=== PATIENT | male | born 1995 | race Caucasian/White ===

== ENCOUNTER → 2020-01-08 10:51 | Outpatient (CLI) | payer OTHER, SELFPAY ==
[2020-01-09 15:09] LABS: COVID19 Sendout NOT DETECTED
== END ==
PROVIDERS: Visit Provider Physician Assistant
DX: Z11.59 Encounter for screening for other viral diseases (principal); Z01.818 Encounter for other preprocedural examination
CPT/HCPCS: 87635

== ENCOUNTER 2020-04-06 09:02 | Emergency (ER) | payer SELFPAY ==
[2020-04-06 09:11] VITALS: BP 136/84; PULSE 74; RESP 18; TEMP 36.9; O2SAT 100; BMI 35.6
--- NOTE | 2020-04-06 09:12 | ED.HA ---
HPI - Headache General Chief Complaint: Headache Stated Complaint: 4-5 DAYS OF CLUSTER MIGRAINES Time Seen by Provider: 04/06/20 09:12 Source: patient Mode of arrival: Ambulatory Limitations: no limitations History of Present Illness HPI Narrative: Patient is a 25-year-old male who presents with headaches is ongoing for the last 4-5 days. He does not previously have headaches. He says he has a headache all over is head is quite severe and intense he has black spots in his vision he cries and lb on things due to the pain. The headaches last for about 45 minutes and then they go away. They typically happen in the morning but he said last night he had 1 is well he just waited for to go away before he fell sleep. He smokes marijuana but denies any new strain his, he has been cutting back on his alcohol use he has tried increasing his water intake nothing seems to help he denies any new environmental factors. Complaint: headache Onset (ago): day(s) (5) Onset description: sudden Location: diffuse Severity: severe Relieving factors: nothing Exacerbating factors: none Context: occurred at rest Associated symptoms: none Related Data Allergies Allergy/AdvReac Type Severity Reaction Status Date / Time clavulanic acid Allergy Mild UPSET Unverified 11/30/17 13:02 [CLAVULANIC ACID] STOMACH Review of Systems Review of Systems Narrative: GENERAL: Denies chills, fatigue, malaise, fever, sweats, travel HEENT: Denies sinus pain, ear pain, sore throat, difficulty swallowing, neck pain RESPIRATORY: Denies dyspnea, cough, wheezing, hemoptysis, sputum. CARDIOVASCULAR: Denies chest pain, palpitations, orthopnea, edema GASTROINTESTINAL: Denies nausea, vomiting, abdominal pain, diarrhea, constipation, melena. : Denies dysuria, frequency, incontinence, hematuria, urinary retention, flank pain. MUSCULOSKELETAL: Denies weakness, joint pain, or bony pain SKIN: No rash, no erythema, no pruritus NEUROLOGIC: See HPI PSYCHIATRIC: No concerning psychosocial issues. 12 point review of systems is negative except for those stated above and HPI Patient History Medical History Patient denies medical problems (Acute) Social History Smoking Status: Current every day smoker Substance Use Type: marijuana Exam Initial Vital Signs Initial Vital Signs: Vital Signs Temperature 98.4 F 04/06/20 09:11 Pulse Rate 74 04/06/20 09:11 Respiratory Rate 18 04/06/20 09:11 Blood Pressure 136/84 04/06/20 09:11 Pulse Oximetry 100 04/06/20 09:11 GENERAL: Well-appearing, well-nourished and in no acute distress. HEENT: Head atraumatic,EOMI, pupils reactive, face symmetric, moist mucous membranes CARDIOVASCULAR: Regular rate and rhythm without murmurs, rubs or gallops. RESPIRATORY: Breath sounds equal bilaterally, no wheezes rales or rhonchi. ABDOMEN: Soft, nontender. Normoactive bowel sounds all 4 quadrants. No guarding or rebound. EXTREMITIES: Normal range of motion, no clubbing or edema. Neurovascularly intact NEUROLOGICAL: Alert and oriented x4.Normal gait and speech. Cranial nerves II through XII grossly intact. Good [id number], good [id number], strength equal bilaterally, no dysarthria or aphasia, sensation in tact to soft touch bilaterally, no visual changes, no facial droop SKIN: Warm, dry, no laceration, no petechiae, no rashes or lesions. Scores NIH Stroke Scale Level of Conciousness: Alert, keenly responsive Ask month/age: Answers both questions correctly. Open/close eyes, close hand: Performs both tasks correctly Best gaze horizontal: Normal Visual espinoza: No visual loss Facial palsy: Normal symetrical movement Left arm drift: No drift for full 10 sec Right arm drift: No drift for full 10 sec Left leg drift: No drift for full 10 sec Right leg drift: No drift for full 10 sec Limb ataxia: Absent Sensory on face/arms/legs: Normal, no sensory loss Best language: No aphasia, normal Dysarthria: Normal Extinction or inattention: No abnormality Total NIH Stroke scale score: 0 Course Orders Ordered: ED Orders 04/06/20 09:18 Basic Metabolic Panel Stat Complete Blood Count AUTO DIFF Stat 04/06/20 09:19 CT head/brain wo con Stat Discontinued Medications Sodium Chloride (Normal Saline 0.9%) 1,000 mls @ 1,000 mls/hr IV BOLUS ONE Stop: 04/06/20 10:18 Last Infusion: 08/16/20 10:30 Dose: 0 mls/hr Documented by: Admin: 04/06/20 09:24 Dose: 1,000 mls/hr Documented by: MILLICENT Ketorolac Tromethamine (Toradol) 30 mg IV NOW ONE Stop: 04/06/20 09:20 Last Admin: 04/06/20 09:24 Dose: 30 mg Documented by: MILLICENT Vital Signs Vital signs: Vital Signs - 8 hr 04/06/20 09:11 04/06/20 10:31 Temperature 98.4 F Pulse Rate 74 72 Respiratory Rate 18 14 Blood Pressure 136/84 131/66 Pulse Oximetry 100 99 MDM - Headache Lab Data Attestation: I reviewed the patient's lab results. Result diagrams: 04/06/20 09:18 04/06/20 09:18 Labs: Lab Results 04/06/20 04/06/20 Range/Units 09:18 09:18 WBC 9.9 (4.5-11.0) X10^3/uL RBC 5.25 (4.5-5.9) X10^6/uL Hgb 15.8 (13.5-17.5) g/dL Hct 45.8 (41-53) % MCV 87.3 (80-100) fL MCH 30.0 (26-34) PG MCHC 34.4 (30-36) % RDW 13.6 (11.6-14.8) % Plt Count 276 (150-400) X10^3/uL Neut % (Auto) 72.4 (50-75) % Lymph % (Auto) 15.5 L (25-40) % [place] % (Auto) 8.8 (3-14) % Eos % (Auto) 2.9 (2-4) % Baso % (Auto) 0.4 (0-2) % Neut # (Auto) 7200 H (9503-5713) /uL Lymph # (Auto) 1500 (4697-0392) /uL [place] # (Auto) 900 (0-900) /uL Eos # (Auto) 300 (0-450) /uL Baso # (Auto) 0 (0-100) /uL Sodium 137 (137-145) mmol/L Potassium 4.4 (3.4-5.1) mmol/L Chloride 105 (98-107) mmol/L Carbon Dioxide 24 (22-32) mmol/L BUN 16 (9-20) mg/dL Creatinine 0.81 (0.66-1.25) mg/dL Estimated GFR > 60.0 (>60) mL/min BUN/Creatinine Ratio 19.8 (6-22) Glucose 92 (70-100) mg/dL Calcium 9.3 (8.4-10.2) mg/dL Imaging Data CT scan - head: Radiologist's Impression: PROCEDURE: CT HEAD/BRAIN WO CON INDICATIONS: new onset headache TECHNIQUE: Noncontrast 4.5 mm thick angled axial sections acquired from the foramen magnum to the vertex, with coronal and sagittal reformats. For radiation dose reduction, the following was used: automated exposure control, adjustment of mA and/or kV according to patient size. COMPARISON: None. FINDINGS: Image quality: Excellent. CSF spaces: Basal cisterns are patent. No extra-axial fluid collections. Ventricles are normal in size and shape. Brain: No midline shift. No intracranial masses or hemorrhage. Rubio-white matter interface is normal. Skull and face: Calvarium and visualized facial bones are intact, without suspicious lesions. Sinuses: There is a mucous retention cyst seen within the left maxillary sinus. Visualized sinuses and mastoids are otherwise clear. IMPRESSION: Unremarkable intracranial study, without an imaging explanation found for the patient's presenting history of headache. No acute intracranial hemorrhage is seen. Dictated by: Yoseph Guthrie M.D. on 04/06/2020 at 8:43 MDM Narrative Medical decision making narrative: PATIENT OVERALL FEELING MUCH BETTER. He cannot think of any change in his diet or activities that may be triggering his headache. At this time Toradol helped his headache significantly and overall feels better. Discharge Plan Departure Patient Disposition: Home Clinical Impression: Headache Qualifiers: Headache type: unspecified Headache chronicity pattern: acute headache Intractability: not intractable Qualified Code(s): R51 - Headache Discharge Date/Time: 04/06/20 10:33 Instructions: DI for Headache Activity Restrictions/Additional Instructions: *You have been diagnosed with headache *What to do: At this time CT scan and blood work are overall reassuring. Recommend that you increase her fluid intake. You may require referral to headache specialist and even possibly an MRI if your headaches continue *Continue to take medications as directed Ibuprofen 800 mg every 8 hours if needed for pain *Follow up with your primary care provider in 2-3 days *Return to ER if you should have worsening headache no relief with ibuprofen persistent vomiting, weakness, fever or any new, worsening or concerning symptoms Referrals: [facility] [Outside]
--- NOTE | 2020-04-06 09:19 | DI.CT.S_ITS ---
PROCEDURE: CT HEAD/BRAIN WO CON INDICATIONS: new onset headache TECHNIQUE: Noncontrast 4.5 mm thick angled axial sections acquired from the foramen magnum to the vertex, with coronal and sagittal reformats. For radiation dose reduction, the following was used: automated exposure control, adjustment of mA and/or kV according to patient size. COMPARISON: None. FINDINGS: Image quality: Excellent. CSF spaces: Basal cisterns are patent. No extra-axial fluid collections. Ventricles are normal in size and shape. Brain: No midline shift. No intracranial masses or hemorrhage. Rubio-white matter interface is normal. Skull and face: Calvarium and visualized facial bones are intact, without suspicious lesions. Sinuses: There is a mucous retention cyst seen within the left maxillary sinus. Visualized sinuses and mastoids are otherwise clear. IMPRESSION: Unremarkable intracranial study, without an imaging explanation found for the patient's presenting history of headache. No acute intracranial hemorrhage is seen. Dictated by: Yoseph Guthrie M.D. on 04/06/2020 at 8:43 Approved by: Yoseph Guthrie M.D. on 04/06/2020 at 8:44
[2020-04-06] MEDS: KETOROLAC 60 MG/2 ML VIAL 30 MG IV (09:24)
[2020-04-06] MEDS: SODIUM CHLORIDE 0.9% 1,000 ML 1000 ML IV (09:24)
[2020-04-06 09:26] LABS: Add Manual Diff / Slide Review NO; Basophils Absolute Auto 0 /uL (0-100); Basophils Percent Auto 0.4 % (0-2); Eosinophils Absolute Auto 300 /uL (0-450); Eosinophils Percent Auto 2.9 % (2-4); Hematocrit 45.8 % (41-53); Hemoglobin 15.8 g/dL (13.5-17.5); Lymphocytes Absolute Auto 1500 /uL (1100-4500); Lymphocytes Percent Auto 15.5 % (25-40); Mean Corpuscular HGB Conc 34.4 % (30-36); Mean Corpuscular Volume 87.3 fL (80-100); Monocytes Absolute Auto 900 /uL (0-900); Monocytes Percent Auto 8.8 % (3-14); Neutrophils Absolute Auto 7200 /uL (1500-7000); Neutrophils Percent Auto 72.4 % (50-75); Platelet Count 276 X10^3/uL (150-400); Red Blood Cell Count 5.25 X10^6/uL (4.5-5.9); Red Cell Distribution Width 13.6 % (11.6-14.8); White Blood Cell Count 9.9 X10^3/uL (4.5-11.0)
[2020-04-06 09:40] LABS: BUN Creatinine Ratio 19.8 (6-22); Blood Urea Nitrogen 16 mg/dL (9-20); Calcium 9.3 mg/dL (8.4-10.2); Carbon Dioxide 24 mmol/L (22-32); Chloride 105 mmol/L (98-107); Estimated Glomerular Filt Rate > 60.0 mL/min (>60); Glucose 92 mg/dL (70-100); HEMOLYSIS < 15 (0-50); Potassium 4.4 mmol/L (3.4-5.1); Sodium 137 mmol/L (137-145)
[2020-04-06 10:31] VITALS: BP 131/66; PULSE 72; RESP 14; O2SAT 99
== END 2020-04-06 10:33 | disposition home or self-care (01) ==
PROVIDERS: Emergency Provider Emergency Medicine
DX: R51 Headache (principal)
CPT/HCPCS: 36415; 70450; 80048; 85025; 96361; 96374; 99284; J1885

== ENCOUNTER 2021-03-30 11:34 | Emergency (ER) | payer OTHER, MEDICAID, SELFPAY ==
[2021-03-30 11:54] VITALS: BP 126/69; PULSE 80; RESP 16; TEMP 36.7; O2SAT 99; BMI 33.9
== END 2021-03-30 15:11 | disposition left against medical advice (07) ==
PROVIDERS: Emergency Provider Nurse Practitioner Family
CPT/HCPCS: 99281

== ENCOUNTER 2021-05-25 12:00 | Emergency (ER) | payer OTHER, MEDICAID, SELFPAY ==
[2021-05-25 12:14] VITALS: BP 182/78; PULSE 82; RESP 14; TEMP 36.2; O2SAT 98; BMI 33.6
[2021-05-25] MEDS: ONDANSETRON 4 MG/2 ML INJ IV (12:39)
[2021-05-25] MEDS: KETOROLAC 30 MG/ML VIAL IM (12:39)
[2021-05-25] MEDS: SODIUM CHLORIDE 0.9% 1,000 ML 1000 ML IV (12:40)
[2021-05-25 12:43] LABS: Add Manual Diff / Slide Review NO; Basophils Absolute Auto 100 /uL (0-100); Basophils Percent Auto 0.5 % (0-2); Eosinophils Absolute Auto 400 /uL (0-450); Eosinophils Percent Auto 2.9 % (2-4); Hemoglobin 15.1 g/dL (13.5-17.5); Lymphocytes Absolute Auto 2000 /uL (1100-4500); Lymphocytes Percent Auto 13.8 % (25-40); Mean Corpuscular HGB Conc 32.9 % (30-36); Mean Corpuscular Hemoglobin 29.5 PG (26-34); Mean Corpuscular Volume 89.8 fL (80-100); Monocytes Absolute Auto 1000 /uL (0-900); Monocytes Percent Auto 6.9 % (3-14); Neutrophils Absolute Auto 10900 /uL (1500-7000); Neutrophils Percent Auto 75.9 % (50-75); Platelet Count 305 X10^3/uL (150-400); Red Blood Cell Count 5.12 X10^6/uL (4.5-5.9); Red Cell Distribution Width 13.6 % (11.6-14.8); White Blood Cell Count 14.3 X10^3/uL (4.5-11.0)
[2021-05-25 12:59] LABS: Alanine Aminotransferase 19 IU/L (<50); Albumin 4.2 g/dL (3.5-5.0); Albumin Globulin Ratio 1.3 (1.0-2.8); Alkaline Phosphatase 84 U/L (38-126); Aspartate Aminotransferase 34 IU/L (17-59); Bilirubin Total 0.5 mg/dL (0.2-1.3); Blood Urea Nitrogen 12 mg/dL (9-20); Calcium 8.9 mg/dL (8.4-10.2); Carbon Dioxide 27 mmol/L (22-32); Chloride 105 mmol/L (98-107); Estimated Glomerular Filt Rate > 60.0 mL/min (>60); Globulin 3.2 g/dL (1.7-4.1); Glucose 93 mg/dL (70-100); Lipase 23 U/L (23-300); Potassium 4.6 mmol/L (3.4-5.1); Sodium 138 mmol/L (137-145); Total Protein 7.4 g/dL (6.3-8.2)
[2021-05-25 13:01] LABS: HEMOLYSIS 78 (0-50)
--- NOTE | 2021-05-25 13:10 | ED_ITS ---
HPI - Abdominal Pain General Chief Complaint: Abdominal Pain Stated Complaint: Sharp pains lower rt abd Time Seen by Provider: 05/25/21 12:30 Source: patient Mode of arrival: Ambulatory Limitations: no limitations History of Present Illness HPI narrative: Patient is 26-year-old male who presents with abdominal pain that started today. Seems to be radiating across his abdomen. Sometimes it is going down to his groin. He has no blood in his urine. He has no nausea or vomiting. No fever chills. He felt fine yesterday it significantly worse today. However after medication in the ED he is feeling better Related Data Home Medications Medication Instructions Recorded Confirmed No Known Home Medications 05/25/21 05/25/21 Allergies Allergy/AdvReac Type Severity Reaction Status Date / Time clavulanic acid Allergy Mild UPSET Verified 05/25/21 12:18 [CLAVULANIC ACID] STOMACH Review of Systems Review of Systems Narrative: GENERAL: Denies chills, fatigue, malaise, fever, sweats, travel HEENT: Denies sinus pain, ear pain, sore throat, difficulty swallowing, neck pain RESPIRATORY: Denies dyspnea, cough, wheezing, hemoptysis, sputum. CARDIOVASCULAR: Denies chest pain, palpitations, orthopnea, edema GASTROINTESTINAL: See HPI : Denies dysuria, frequency, incontinence, hematuria, urinary retention, flank pain. MUSCULOSKELETAL: Denies weakness, joint pain, or bony pain SKIN: No rash, no erythema, no pruritus NEUROLOGIC: Denies weakness, dizziness, headache, numbness, change in speech, confusion PSYCHIATRIC: No concerning psychosocial issues. 12 point review of systems is negative except for those stated above and HPI Patient History Medical History (Updated 05/25/21 @ 15:07 by Kelli Morrison DO) Patient denies medical problems Social History Smoking Status: Former smoker Smoking Status: Former smoker tobacco type: cigarettes alcohol intake frequency: 3 or more drinks per day Substance Use Type: marijuana Exam Initial Vital Signs Initial Vital Signs: Vital Signs Temperature 97.1 F L 05/25/21 12:14 Pulse Rate 82 05/25/21 12:14 Respiratory Rate 14 05/25/21 12:14 Blood Pressure 182/78 H 05/25/21 12:14 Pulse Oximetry 98 05/25/21 12:14 GENERAL: Alert well-appearing 26-year-old this in no acute] distress. HEENT: Head atraumatic,EOMI, pupils reactive, face symmetric, [moist] mucous membranes CARDIOVASCULAR: Regular rate and rhythm without murmurs, rubs or gallops. RESPIRATORY: Breath sounds equal bilaterally, no wheezes rales or rhonchi. ABDOMEN: Soft, mild right lower quadrant tenderness no guarding no rebound no periumbilical tenderness : No CVA tenderness EXTREMITIES: Normal range of motion, no clubbing or edema. Neurovascularly intact NEUROLOGICAL: Alert and oriented x4.Normal gait and speech. SKIN: Warm, dry, no laceration, no petechiae, no rashes or lesions. Course Orders Ordered: ED Orders 05/25/21 12:20 Complete Blood Count AUTO DIFF Stat Comprehensive Metabolic Panel Stat Lipase Stat 05/25/21 13:15 CT kidney ureter bladder (KUB) Stat Discontinued Medications Sodium Chloride (Normal Saline 0.9%) 1,000 mls @ 1,000 mls/hr IV BOLUS ONE Stop: 05/25/21 13:27 Last Infusion: 05/25/21 13:59 Dose: 0 mls/hr Documented by: Admin: 05/25/21 12:40 Dose: 1,000 mls/hr Documented by: CTR.HANDER Ketorolac Tromethamine (Ketorolac 30 Mg/Ml Vial) 30 mg IM NOW ONE Stop: 05/25/21 12:29 Last Admin: 05/25/21 12:39 Dose: 30 mg Documented by: CTR.HANDER Ondansetron HCl (Ondansetron 4 Mg/2 Ml Inj) 4 mg IV NOW ONE Stop: 05/25/21 12:19 Last Admin: 05/25/21 12:39 Dose: 4 mg Documented by: CTR.HANDER Vital Signs Vital signs: Vital Signs - 8 hr 05/25/21 12:14 05/25/21 14:04 Temperature 97.1 F L Pulse Rate 82 54 L Respiratory Rate 14 15 Blood Pressure 182/78 H 99/56 L Pulse Oximetry 98 99 MDM - Abdominal Pain Lab Data Result diagrams: 05/25/21 12:20 05/25/21 12:20 Labs: Lab Results 05/25/21 05/25/21 Range/Units 12:20 12:20 WBC 14.3 H (4.5-11.0) X10^3/uL RBC 5.12 (4.5-5.9) X10^6/uL Hgb 15.1 (13.5-17.5) g/dL Hct 46.0 (41-53) % MCV 89.8 (80-100) fL MCH 29.5 (26-34) PG MCHC 32.9 (30-36) % RDW 13.6 (11.6-14.8) % Plt Count 305 (150-400) X10^3/uL Neut % (Auto) 75.9 H (50-75) % Lymph % (Auto) 13.8 L (25-40) % [place] % (Auto) 6.9 (3-14) % Eos % (Auto) 2.9 (2-4) % Baso % (Auto) 0.5 (0-2) % Neut # (Auto) 46194 H (2413-5038) /uL Lymph # (Auto) 2000 (8315-5707) /uL [place] # (Auto) 1000 H (0-900) /uL Eos # (Auto) 400 (0-450) /uL Baso # (Auto) 100 (0-100) /uL Sodium 138 (137-145) mmol/L Potassium 4.6 (3.4-5.1) mmol/L Chloride 105 (98-107) mmol/L Carbon Dioxide 27 (22-32) mmol/L BUN 12 (9-20) mg/dL Creatinine 0.75 (0.66-1.25) mg/dL Estimated GFR > 60.0 (>60) mL/min BUN/Creatinine Ratio 16.0 (6-22) Glucose 93 (70-100) mg/dL Calcium 8.9 (8.4-10.2) mg/dL Total Bilirubin 0.5 (0.2-1.3) mg/dL AST 34 (17-59) IU/L ALT 19 (<50) IU/L Alkaline Phosphatase 84 (38-126) U/L Total Protein 7.4 (6.3-8.2) g/dL Albumin 4.2 (3.5-5.0) g/dL Globulin 3.2 (1.7-4.1) g/dL Albumin/Globulin Ratio 1.3 (1.0-2.8) Lipase 23 (23-300) U/L Point of care testing: Urine Dip Bedside Urine Glucose Negative Bedside Urine Bilirubin - Negative Bedside Urine Ketone - Negative Urine Specific [place] 1.030 Bedside Urine Occult Blood - Negative Bedside Urine pH 6.0 Bedside Urine Protein - Negative Bedside Urine Urobilinogen - Negative Bedside Urine Nitrite - Negative Bedside Urine Leukocytes - Negative Esterase Imaging Data CT scan - abdomen/pelvis: Radiologist's Impression: PROCEDURE:? CT KIDNEY URETER BLADDER (KUB) ? INDICATIONS:? right flank pain ? TECHNIQUE:? Axial sections were acquired from the lung bases to the pubic symphysis.? Coronal and sagittal reformats were performed.? For radiation dose reduction, the following was used: ?automated exposure control, adjustment of mA and/or kV according to patient size.? ? COMPARISON:? None. ? FINDINGS:? Image quality:? Excellent.? ? Lung bases:? Unremarkable.? ? Heart:? No significant findings. ? URINARY: Right Kidney: ? No stones or hydronephrosis.? Right Ureter:? No hydroureter.? ? Left Kidney: ? No stones or hydronephrosis. Left Ureter:? No hydroureter.? ? Bladder:? Normal wall thickness. No stones. ? ? ? ABDOMEN: Liver:? Unremarkable.? ? Gallbladder:? Unremarkable.? ? Biliary ducts:? Unremarkable.? ? Pancreas:? Unremarkable.? ? Spleen:? Unremarkable.? ? Adrenal Glands:? Unremarkable.? ? ? Stomach and Bowel:? Stomach, small bowel loops, and colon are unremarkable.? Normal appendix. Peritoneum:? No abnormal intraperitoneal fluid.? No free air.? ? Ventral Wall: ? No hernia.? Abdominal Nodes:? No enlarged retroperitoneal or mesenteric lymph nodes.? Vessels:? Aorta and inferior vena cava are normal in size.? ? PELVIS: Pelvic Organs:? Unremarkable.? ? Pelvic Nodes: Unremarkable. Miscellaneous: No inguinal hernias are seen. ? ? ? Bones:? Unremarkable. ? IMPRESSION:? ? 1.? No evidence of renal stone, ureteral stone, or hydronephrosis. ? 2. No evidence of acute abdominal process. ? ? ? Dictated by: Jagdish Chadwick M.D. on 05/25/2021 at 13:56 ? ? Approved by: Jagdish Chadwick M.D. on 05/25/2021 at 13:58 ? MDM Narrative Medical decision making narrative: The patient is presenting with sudden onset of right-sided abdominal pain sharp shooting possible kidney stone versus appendicitis. Blood work is reassuring CT does not show any abnormality. He is feeling much better after Toradol. Unclear what the etiology is however at this time he can follow up outpatient Discharge Plan Departure Patient Disposition: Home Clinical Impression: Abdominal pain Qualifiers: Abdominal location: generalized Qualified Code(s): R10.84 - Generalized abdomin al pain Instructions: DI for Abdominal Pain-Adult Activity Restrictions/Additional Instructions: *You have been diagnosed with abdominal pain *What to do: At this time no evidence what is causing her abdominal pain. There is no evidence of appendicitis or kidney stones. *Continue to take medications as directed Motrin 600 mg every 6 hours as needed for [id number] pain *Follow up with your primary care provider in 2-3 days *Return to ER if you should have increasing pain nausea vomiting fever or any new, worsening or concerning symptoms Prescriptions: No Action No Known Home Medications RF: 0 Referrals: Miscellaneous,MD Lorrie [Primary Care Provider] -
--- NOTE | 2021-05-25 13:15 | DI.CT.S_ITS ---
PROCEDURE: CT KIDNEY URETER BLADDER (KUB) INDICATIONS: right flank pain TECHNIQUE: Axial sections were acquired from the lung bases to the pubic symphysis. Coronal and sagittal reformats were performed. For radiation dose reduction, the following was used: automated exposure control, adjustment of mA and/or kV according to patient size. COMPARISON: None. FINDINGS: Image quality: Excellent. Lung bases: Unremarkable. Heart: No significant findings. URINARY: Right Kidney: No stones or hydronephrosis. Right Ureter: No hydroureter. Left Kidney: No stones or hydronephrosis. Left Ureter: No hydroureter. Bladder: Normal wall thickness. No stones. ABDOMEN: Liver: Unremarkable. Gallbladder: Unremarkable. Biliary ducts: Unremarkable. Pancreas: Unremarkable. Spleen: Unremarkable. Adrenal Glands: Unremarkable. Stomach and Bowel: Stomach, small bowel loops, and colon are unremarkable. Normal appendix. Peritoneum: No abnormal intraperitoneal fluid. No free air. Ventral Wall: No hernia. Abdominal Nodes: No enlarged retroperitoneal or mesenteric lymph nodes. Vessels: Aorta and inferior vena cava are normal in size. PELVIS: Pelvic Organs: Unremarkable. Pelvic Nodes: Unremarkable. Miscellaneous: No inguinal hernias are seen. Bones: Unremarkable. IMPRESSION: 1. No evidence of renal stone, ureteral stone, or hydronephrosis. 2. No evidence of acute abdominal process. Dictated by: Jagdish Chadwick M.D. on 05/25/2021 at 13:56 Approved by: Jagdish Chadwick M.D. on 05/25/2021 at 13:58
[2021-05-25 14:04] VITALS: BP 99/56; PULSE 54; RESP 15; O2SAT 99
== END 2021-05-25 15:16 | disposition home or self-care (01) ==
PROVIDERS: Emergency Provider Emergency Medicine
DX: R10.84 Generalized abdominal pain (principal)
CPT/HCPCS: 36415; 74176; 80053; 81003; 83690; 85025; 96361; 96372; 96374; 99284; J1885; J2405

== ENCOUNTER 2022-02-12 17:45 | Emergency (ER) | payer OTHER, MEDICAID, SELFPAY ==
[2022-02-12 17:52] VITALS: BP 143/94; PULSE 73; RESP 18; TEMP 36.2; O2SAT 98; BMI 32.5
[2022-02-12] MEDS: HYDROCODONE/ACET 5/325 TABLET 1 TAB PO (18:39)
[2022-02-12] MEDS: AMOXICILLIN/CLAV 875/125 MG 1 TAB PO (18:39)
[2022-02-12] MEDS: DEXAMETHASONE 10 MG/ML VIAL 8 MG PO (18:39)
--- NOTE | 2022-02-12 18:48 | PC.NURSE ---
broken rotted tooth pain and swelling for months.
--- NOTE | 2022-02-12 18:53 | ED.DENTAL ---
HPI - Dental/Oral <ANA PAULA Gonzales - Last Filed: 02/12/22 19:01> General Chief complaint: Dental/Oral Stated complaint: pain from broken tooth Time Seen by Provider: 02/12/22 18:24 Source: patient Mode of arrival: Ambulatory History of Present Illness HPI Narrative: This is a 26-year-old male who presents to the emergency department complaining of #18 dental pain from decay and possibly an old tooth fracture. Patient states that he has referral to [facility] there for this dental extraction and there was a problem with their equipment and he states that his dental extraction was rescheduled for March 17. Patient has a new patient appointment at the [facility] next week. He states that this tooth has been painful for over two months, it is hollowed out, dark in the middle, and he endorses some swelling of his gums, jaw, and is concerned that is infected. He states that he has had antibiotics in the past for this, was unsure if it helped or not, states that the pain is pretty significant and he has taken more than a normal daily allotment of ibuprofen today. Patient denies any recent fevers, chills, discharge from his two, states that there is mild swelling of surrounding gums but no large bump or abscess that he can feel. Related Data Previous Rx's Medication Instructions Recorded amoxicillin 875 mg-potassium 1 tab PO BID dental infection 7 02/12/22 clavulanate 125 mg tablet days #14 tabs hydrocodone 5 mg-acetaminophen 325 1 tab PO BID PRN pain #14 tabs 02/12/22 mg tablet prednisone 50 mg tablet 50 mg PO DAILY #5 tabs 02/12/22 Allergies Allergy/AdvReac Type Severity Reaction Status Date / Time clavulanic acid AdvReac Mild UPSET Verified 02/12/22 18:42 [CLAVULANIC ACID] STOMACH Review of Systems <ANA PAULA Gonzales - Last Filed: 02/12/22 19:01> Review of Systems Narrative: General: denies fever, chills, malaise, sweats, fatigue Head/Neck: denies headache, neck pain, dizziness, Mouth: Left lower tooth decay and pain Eyes: denies visual changes, eye pain Cardio: denies chest pain, palpitations, edema Respiratory: denies dyspnea, cough, orthopnea GI: denies abdominal pain, nausea, vomiting, or diarrhea : denies dysuria, hematuria, urinary retention, frequency or incontinence MSK: denies joint pain, muscle weakness Skin: denies rash, itching, skin lesions or other Neuro: denies numbness, tingling Patient History <ANA PAULA Gonzales - Last Filed: 02/12/22 19:01> Medical History Patient denies medical problems Social History Smoking Status: Former smoker Smoking Status: Former smoker tobacco type: cigarettes alcohol intake frequency: 3 or more drinks per day Substance Use Type: marijuana Exam <ANA PAULA Gonzales - Last Filed: 02/12/22 19:01> Narrative Exam Narrative: Independently reviewed vitals signs and nursing notes. General: cooperative, comfortable, in no acute distress, well groomed Head: atraumatic, symmetrical facial expressions Neck: supple Eyes: equal round and reactive, EOMI, conjunctiva normal Nose: nares patent, no rhinorrhea Mouth/Throat: moist mucus membranes, #18 Tooth is hollowed out in the middle, darkened, decayed, no visible or palpable surrounding abscess, patient has mild tenderness to his lower jaw overlying this tooth., uvula is midline Cardiovascular: regular rate and rhythm, no peripheral edema, warm extremities Respiratory: normal effort, able to speak in complete sentences, no audible wheezing, stridor, or rales. No retractions or tachypnea. GI: abdomen soft, nontender to palpation, nondistended, no masses, no exquisite tenderness with exam, without guarding or rebound. MSK: moves all extremities, neurovascularly intact, no weakness, normal tone Skin: brisk capillary refill, no rash, no erythema Neuro: normal speech and cognition, A&O x3 Psych: mental status is grossly normal, congruent mood, normal affect, pleasant and cooperative Initial Vital Signs Initial Vital Signs: Vital Signs Temperature 97.2 F L 02/12/22 17:52 Pulse Rate 73 02/12/22 17:52 Respiratory Rate 18 02/12/22 17:52 Blood Pressure 143/94 H 02/12/22 17:52 Pulse Oximetry 98 02/12/22 17:52 Oxygen Delivery Method 02/12/22 17:52 <Ish Matthews DO - Last Filed: 02/12/22 19:03> Initial Vital Signs Initial Vital Signs: Vital Signs Temperature 97.2 F L 02/12/22 17:52 Pulse Rate 73 02/12/22 17:52 Respiratory Rate 18 02/12/22 17:52 Blood Pressure 143/94 H 02/12/22 17:52 Pulse Oximetry 98 02/12/22 17:52 Oxygen Delivery Method 02/12/22 17:52 Course <ANA PAULA Gonzales - Last Filed: 02/12/22 19:01> Orders Ordered: Discontinued Medications Hydrocodone Bitart/Acetaminophen (Hydrocodone/Acet 5/325 Tablet) 1 tab PO NOW ONE Stop: 02/12/22 18:34 Last Admin: 02/12/22 18:39 Dose: 1 tab Documented By: HARISH Amoxicillin/Clavulanate Potassium (Amoxicillin/Clav 875/125 Mg) 1 tab PO NOW ONE Stop: 02/12/22 18:35 Last Admin: 02/12/22 18:39 Dose: 1 tab Documented By: HARISH Dexamethasone (Dexamethasone 10 Mg/Ml Vial) 8 mg PO NOW ONE Stop: 02/12/22 18:34 Last Admin: 02/12/22 18:39 Dose: 8 mg Documented By: HARISH Vital Signs Vital signs: Vital Signs - 8 hr 02/12/22 17:52 Temperature 97.2 F L Pulse Rate 73 Respiratory Rate 18 Blood Pressure 143/94 H Pulse Oximetry 98 Oxygen Delivery Method Room Air <Ish Matthews DO - Last Filed: 02/12/22 19:03> Orders Ordered: Discontinued Medications Hydrocodone Bitart/Acetaminophen (Hydrocodone/Acet 5/325 Tablet) 1 tab PO NOW ONE Stop: 02/12/22 18:34 Last Admin: 02/12/22 18:39 Dose: 1 tab Documented By: HARISH Amoxicillin/Clavulanate Potassium (Amoxicillin/Clav 875/125 Mg) 1 tab PO NOW ONE Stop: 02/12/22 18:35 Last Admin: 02/12/22 18:39 Dose: 1 tab Documented By: HARISH Dexamethasone (Dexamethasone 10 Mg/Ml Vial) 8 mg PO NOW ONE Stop: 02/12/22 18:34 Last Admin: 02/12/22 18:39 Dose: 8 mg Documented By: [facility] Vital Signs Vital signs: Vital Signs - 8 hr 02/12/22 17:52 Temperature 97.2 F L Pulse Rate 73 Respiratory Rate 18 Blood Pressure 143/94 H Pulse Oximetry 98 Oxygen Delivery Method Room Air MDM - Dental/Oral <Emily Bryant TOBACCO EDUCATOR - Last Filed: 02/12/22 19:01> [facility] Narrative Medical decision making narrative: This is a 26-year-old male with history of dental pain for the last 2+ months associated with tooth 18 and states that it is possibly fractured but definitely decayed and he is in the emergency department with worsening pain and concern for infection. Patient reports that he was scheduled to have his 18. Tooth extracted and the [facility] did not have function equipment at the time of this, his appointment was rescheduled, patient has a appointment there next week. He has been taking ibuprofen for his pain and denies any abdominal pain. Patient has mild tenderness to his lower mandible, no palpable abscess or fluctuant mass, mild erythema as to the gingiva surrounding the tooth. Patient was treated with Augmentin for a dental/gingival infection verses abscess. Patient understands to call have follow-up with [facility] as soon as possible. He was given hydrocodone for pain, a prescription of prednisone daily for five days, and has been using Orajel at home with mild to moderate benefit. Patient was recommended to stay hydrated, eat food with his medications, take Tylenol and ibuprofen as needed for his pain and hydrocodone for breakthrough pain. Discussed the need to have this extracted as soon as possible for the potential risk to his health. He was given strict return precautions. Patient is appropriate and amenable to discharge home. Vital signs are stable on repeat examination is unremarkable. Patient has been informed of results. Patient has been given strict return to ER precautions for any new or worsening symptoms. Patient understands to follow up closely with outpatient providers as instructed. Patient understands plan and agrees to discharge home. All questions and concerns answered at this time. Discharge Plan Departure Patient Disposition: Home Clinical Impression: Dental decay, Pain due to dental caries Instructions: Tooth Decay, DI for Dental Pain Activity Restrictions/Additional Instructions: *You have been diagnosed with dental decay and likely infection. The decay may have and nerve root exposed, you can use topical Orajel or Anbesol to help numb that when it is severe. Please take these antibiotics twice a day for the next seven days, it might cause diarrhea, sorry for that. I have given you some breakthrough pain medicine called hydrocodone, you may take one every 6-8 hours as needed for pain in addition to Tylenol and ibuprofen. Tomorrow, please start taking ibuprofen 100 mg every 8 hours with food and water, take 650 mg of Tylenol in addition to this, and you may take one hydrocodone every 6-8 needed in addition to those for optimal pain control. I would use topical numbing agents as you need them. Please call [facility] and follow up next week at your scheduled appointment. Please call in and see if get in sooner. [facility] [place] [phone] [place] [phone] *What to do: *Please continue to take your regular medications as directed. [x ] New medication prescriptions sent to your pharmacy: [[facility] ] [ ] New medication written as a paper prescription [ ] No new medications given *Please follow up with your primary care provider in 2-3 days, call for an appointment. Let them know you were seen in the Emergency Department and that we asked that you be seen for follow-up. We will electronically transmit a record of today's note if your PCP is in our system *If you do not have a primary care provider please contact [phone] to establish care with one of the [facility] primary care providers. *Return to Emergency Department if you should have any new, worsening or concerning symptoms, such as [fever greater than 101F, chills, worsening pain, persistent vomiting or other bothersome symptoms] Prescriptions: New amoxicillin-pot clavulanate 875-125 mg tablet 1 tab PO BID 7 Days Qty: 14 0RF hydrocodone-acetaminophen 5-325 mg tablet 1 tab PO BID PRN (Reason: pain) Qty: 14 0RF prednisone 50 mg tablet 50 mg PO DAILY Qty: 5 0RF Rx Instructions: Please start tomorrow, this will help reduce inflammation and hopefully pain Visit Report Forms: Patient Portal/API <Ish Matthews, DO - Last Filed: 02/12/22 19:03> [facility] Attestation: Dr Matthews Co-Sign Statement: I was available for consultation during this patient's emergency department visit. This chart is signed by myself for administrative purposes only. I did not have direct contact with this patient during this visit. They were seen independently by the APC.
== END 2022-02-12 18:59 | disposition home or self-care (01) ==
PROVIDERS: Emergency Provider Nurse Practitioner Critical Care Medicine
DX: K02.9 Dental caries, unspecified (principal)
CPT/HCPCS: 99283; J1100

== ENCOUNTER 2023-11-17 16:33 | Emergency (ER) | payer OTHER, SELFPAY ==
[2023-11-17 16:37] VITALS: BP 137/62; PULSE 63; RESP 15; TEMP 36.8; O2SAT 97; BMI 32.5
--- NOTE | 2023-11-17 16:52 | ED.WOUNDLAC ---
HPI - Wound/Laceration <Claire Lynne PA-C - Last Filed: 11/17/23 18:18> General Chief Complaint: Wound/Laceration Stated Complaint: Hand Laceration Time Seen by Provider: 11/17/23 16:52 Source: patient Mode of arrival: Ambulatory History of Present Illness HPI narrative: 28-year-old male presents today with a right thumb laceration. He was at home prior to arrival doing the dishes scrubbing a ceramic bowl when it broke. He is right-handed dominant he is denying any numbness tingling or loss of sensation. He did have did show bone at the time but did rapid came straight here. He is denying any foreign body sensation, he is unsure of when his last tetanus was. All other systems are reviewed and are negative. Related Data Previous Rx's Medication Instructions Recorded hydrocodone 5 mg-acetaminophen 325 1 tab PO BID PRN pain #14 tabs 02/12/22 mg tablet prednisone 50 mg tablet 50 mg PO DAILY #5 tabs 02/12/22 Allergies Allergy/AdvReac Type Severity Reaction Status Date / Time clavulanic acid AdvReac Mild UPSET Verified 11/17/23 16:42 [CLAVULANIC ACID] STOMACH Review of Systems <Claire Lynne PA-C - Last Filed: 11/17/23 18:18> Review of Systems Narrative: All other systems are reviewed and are negative. Patient History <Claire Lynne PA-C - Last Filed: 11/17/23 18:18> Medical History (Updated 11/17/23 @ 17:04 by Claire Lynne PA-C) Patient denies medical problems Social History Smoking Status: Current every day smoker Smoking Status: Current every day smoker tobacco type: vaping alcohol intake frequency: 3 or more drinks per day Substance Use Type: marijuana Exam <Claire Lynne PA-C - Last Filed: 11/17/23 18:18> Initial Vital Signs Initial Vital Signs: Vital Signs Temperature 98.2 F 11/17/23 16:37 Pulse Rate 63 11/17/23 16:37 Respiratory Rate 15 11/17/23 16:37 Blood Pressure 137/62 11/17/23 16:37 Pulse Oximetry 97 11/17/23 16:37 Oxygen Delivery Method Room Air 11/17/23 16:37 Reviewed and are normal. Const Other: Smiling, seated, no distress. Pleasantly conversing. Skin Other: Proximally 1 cm laceration to the dorsal aspect of his proximal thumb. Wound edges are . No signs of any foreign body. No active bleeding. Linear with a distal ragged and. Extrem Other: Full active range of motion to his thumb, all digits, wrist, his pinch mechanism is intact, 2 point discrimination is also intact. There is no flexor or extensor tendon involvement. Strength is intact against active range of motion against resistance with the right thumb. <Monse Bryson MD - Last Filed: 11/17/23 18:22> Initial Vital Signs Initial Vital Signs: Vital Signs Temperature 98.2 F 11/17/23 16:37 Pulse Rate 63 11/17/23 16:37 Respiratory Rate 15 11/17/23 16:37 Blood Pressure 137/62 11/17/23 16:37 Pulse Oximetry 97 11/17/23 16:37 Oxygen Delivery Method Room Air 11/17/23 16:37 Procedures <Claire Lynne PA-C - Last Filed: 11/17/23 18:18> Laceration Repair Laceration 1: Time of procedure: 17:10 Site: hand (Right thumb dorsal aspect) Size (cm): 1 Description: irregular (Linear with a right angle slightly jagged edge inferiorly) Depth: simple, single layer Local Anesthetic: lidocaine 1% Amount of anesthesia used (mL): 2 Pre-repair: wound explored, irrigated extensively, deep structures intact and cleansed with chlorhexadine Skin layer closed with: nylon Skin layer suture size: 4-0 Number of sutures: 3 Technique: simple, interrupted Course <Claire Lynne PA-C - Last Filed: 11/17/23 18:18> Course Course Narrative: Uncomplicated laceration of the right thumb on the dorsal aspect it with repaired with simple interrupted sutures 3. Applied. Well tolerated no vascular or neurologic compromise. Postprocedure he remains intact. Orders Ordered: Discontinued Medications Diphtheria/Tetanus/Acell Pertussis (Tet,Diph,Pertuss(Acell),Vac/Pf 0.5 Ml Syringe) 0.5 ml IM .ONCE ONE Stop: 11/17/23 16:56 Last Admin: 11/17/23 17:08 Dose: 0.5 ml Documented By: NGA Lidocaine HCl (Lidocaine 1% (Pf) 2ml) 2 ml INJ NOW ONE Stop: 11/17/23 17:02 Last Admin: 11/17/23 17:09 Dose: 2 ml Documented By: NGA Vital Signs Vital signs: Vital Signs - 8 hr 11/17/23 16:37 Temperature 98.2 F Pulse Rate 63 Respiratory Rate 15 Blood Pressure 137/62 Pulse Oximetry 97 Oxygen Delivery Method Room Air <Monse Bryson MD - Last Filed: 11/17/23 18:22> Orders Ordered: Discontinued Medications Diphtheria/Tetanus/Acell Pertussis (Tet,Diph,Pertuss(Acell),Vac/Pf 0.5 Ml Syringe) 0.5 ml IM .ONCE ONE Stop: 11/17/23 16:56 Last Admin: 11/17/23 17:08 Dose: 0.5 ml Documented By: NGA Lidocaine HCl (Lidocaine 1% (Pf) 2ml) 2 ml INJ NOW ONE Stop: 11/17/23 17:02 Last Admin: 11/17/23 17:09 Dose: 2 ml Documented By: NGA Vital Signs Vital signs: Vital Signs - 8 hr 11/17/23 16:37 Temperature 98.2 F Pulse Rate 63 Respiratory Rate 15 Blood Pressure 137/62 Pulse Oximetry 97 Oxygen Delivery Method Room Air MDM - Wound/Laceration <Claire Lynne PA-C - Last Filed: 11/17/23 18:18> MDM Narrative Medical decision making narrative: No clinical findings on exam to warrant radiography. No focal neurologic or vascular deficits. Simple interrupted suture repair following cleansing and irrigation. His tetanus was updated today. He will need to have the stitches out in about 5-7 days. Discharge Plan Departure Patient Disposition: Home Clinical Impression: Laceration of thumb Qualifiers: Encounter type: initial encounter Damage to nail status: without damage Foreign body presence: without foreign body Laterality: right Qualified Code(s): S61.011A - Laceration without foreign body of right thumb without damage to nail, initial encounter Instructions: DI for Laceration Repair Activity Restrictions/Additional Instructions: Keep the Coban dressing intact for the next 48 hours. Then you may take it down and downsized to a simple bandage. Keep it dry sutures should come out in about 5-7 days, may start itching, monitor for any signs of infection including increased swelling, redness, drainage, pain numbness coldness to touch or any odor. You may wash the hand but again in the 1st 2 days keep the dressing intact and completely dry. In the future try to avoid washing her dishes with your hand then used an instrument scrubbing tool. Keep it elevated to minimize throbbing, Tylenol as needed for pain. Return immediately if there are any issues mentioned. Prescriptions: No Action hydrocodone-acetaminophen 5-325 mg tablet 1 tab PO BID PRN (Reason: pain) Qty: 14 0RF prednisone 50 mg tablet 50 mg PO DAILY Qty: 5 0RF Rx Instructions: Please start tomorrow, this will help reduce inflammation and hopefully pain Referrals: Miscellaneous,Doctor, [Primary Care Provider] - Stand Alone Forms: Patient Portal/API ED Sign-out <Monse Bryson MD - Last Filed: 11/17/23 18:22> [facility] ED Attending [facility] Attestation: I did not see this patient. I was available all times for consultation.
[2023-11-17] MEDS: TET,DIPH,PERTUSS(ACELL),VAC/PF 0.5 ML SYRINGE IM (17:08)
[2023-11-17] MEDS: LIDOCAINE 1% (PF) 2ML 2 ML INJ (17:09)
[2023-11-17 18:28] VITALS: BP 125/81; PULSE 58; RESP 16; O2SAT 100
== END 2023-11-17 18:28 | disposition home or self-care (01) ==
PROVIDERS: Emergency Provider Physician Assistant Medical
DX: S61.011A Laceration without foreign body of right thumb without damage to nail, initial encounter (principal); W26.9XXA Contact with unspecified sharp object(s), initial encounter; Z23 Encounter for immunization
CPT/HCPCS: 12001; 90471; 99283; 90715

== ENCOUNTER → 2025-04-27 08:12 | Outpatient (CLI) | payer BC, SELFPAY ==
[2025-04-27 08:51] LABS: Hematocrit 46.2 % (41-53); Hemoglobin 16.0 g/dL (13.5-17.5); Mean Corpuscular HGB Conc 34.7 % (30-36); Mean Corpuscular Hemoglobin 29.9 PG (26-34); Mean Corpuscular Volume 86.3 fL (80-100); Platelet Count 297 X10^3/uL (150-400)
[2025-04-27 09:07] LABS: Hemoglobin A1C% w Est Avg Glu 5.2 % (4.0-6.0)
[2025-04-27 09:37] LABS: Alanine Aminotransferase 33 IU/L (<50); Albumin 4.6 g/dL (3.5-5.0); Albumin Globulin Ratio 1.4 (1.0-2.8); Alkaline Phosphatase 95 U/L (38-126); Blood Urea Nitrogen 18 mg/dL (9-20); Calcium 9.5 mg/dL (8.4-10.2); Carbon Dioxide 25 mmol/L (22-32); Chloride 105 mmol/L (98-107); Cholesterol 228 mg/dL (140-199); Estimated Glomerular Filt Rate > 60 mL/min (>60); Globulin 3.3 g/dL (1.7-4.1); Glucose 96 mg/dL (70-99); HDL Cholesterol 54 mg/dL (40-60); HEMOLYSIS < 15 (0-50); Potassium 4.9 mmol/L (3.4-5.1); Sodium 140 mmol/L (137-145); Total Protein 7.9 g/dL (6.3-8.2); Triglycerides 89 mg/dL (35-150)
[2025-04-27 10:08] LABS: TSH w/ Reflex to FT4 2.05 uIU/mL (0.47-4.68)
[2025-04-27 10:29] LABS: HIV 1 & 2 Ab/Ag 4th Gen Combo NEGATIVE (NEGATIVE); Hep C Virus Ab w/Reflex Quant NEGATIVE s/c (NEGATIVE)
== END ==
PROVIDERS: PCP Family Medicine; Referring Provider Family Medicine; Visit Provider Family Medicine
DX: E66.9 Obesity, unspecified (principal); Z13.220 Encounter for screening for lipoid disorders; Z13.9 Encounter for screening, unspecified; Z13.1 Encounter for screening for diabetes mellitus
CPT/HCPCS: 36415; 80053; 80061; 83036; 84443; 85027; 86803; 87389